=== PATIENT | male | born 1950 | race Caucasian/White ===

== ENCOUNTER 2023-03-22 00:51 | Day surgery (SDC) | payer OTHER, SELFPAY ==
[2023-03-07 14:50] VITALS: BMI 21.7
--- NOTE | 2023-03-22 09:36 | PCCCNOTE ---
CC was notified of pt. requesting to see a oncology social work due to what pt. described as a family situation. Met with pt. and pt's brother in law Robert. Asked pt. if he'd like to meet with CC in area but pt. reported he no longer needed a oncology social work and just wanted to get this colonoscopy done. Pt. aware that if he changed his mind, to request CC to come back later today.
[2023-03-22 09:48] VITALS: BP 134/89; PULSE 55; RESP 20; TEMP 36.6; O2SAT 99
[2023-03-22] MEDS: LACTATED RINGERS 1,000 ML 150 ML IV CONT (10:00)
--- NOTE | 2023-03-22 10:04 | P.PNAN_ITS ---
Anes - Initial Pre Proc Eval Procedure: Operation Date: 03/22/23 11:00 Proposed Procedures p Screening Colonoscopy - Catrachito Luna MD Date/Time: 03/22/23 10:04 Surgeon: Catrachito Luna MD Pre Op Diagnosis: neoplasm screening Patient Data Age: 73 Gender: M Height: 1.88 m Weight: 76.8 kg Last Vital Signs Temp 36.6 C 03/22/23 09:48 Pulse 55 L 03/22/23 09:48 Resp 20 03/22/23 09:48 BP 134/89 03/22/23 09:48 Pulse Ox 99 03/22/23 09:48 O2 Del Method Room Air 03/22/23 09:48 Allergies Allergy/AdvReac Type Severity Reaction Status Date / Time No Known Allergies Allergy Verified 03/22/23 09:47 Home Medications Medication Instructions Recorded Confirmed Type atorvastatin 10 mg tablet 10 mg PO DAILY 03/07/23 03/07/23 History lifitegrast 5 % eye drops in a 2 drp EACH EYE DAILY 03/07/23 03/07/23 History dropperette (Xiidra) [id number] 300 mcg-K 60 1 tablet PO DAILY 03/07/23 03/07/23 History mcg-lycop 600 mcg-lutein 300 mcg tablet (Centrum Silver Men) omega 6-aro-djx-fish oil 1,200 mg 1 cap PO DAILY 03/07/23 03/07/23 History (144 mg-216 mg) capsule (Fish Oil) vit C 250 mg-vit E 90 mg-zinc 40 1 tablet PO DAILY 03/07/23 03/07/23 History mg-copper 1 [id number]-knlfef-[id number] capsule (PreserVision AREDS-2) Patient hx anesthesia problems: none Family hx anesthesia problems: none Results Review: All pre-operative results and documents have been reviewed as part of the pre- operative evaluation. [facility] Social History Social History Smoking packs per day: 1 Smoking cigarettes per day: 20.0 Years smoked: 50 Smoking pack-years: 50.00 Smoking status: Current every day smoker Tobacco type: cigarettes Alcohol intake: never Substance use: never Substance use type: does not use Living arrangements: alone Spiritual care concerns: No Anes - Eval Final PreProcedure Day of Procedure 03/22/23 10:04 Patient weight: normal Heart: regular rate and rhythm Lungs: decreased breath sounds Airway: Mallampati scale class II Neurological: alert and oriented Last oral intake: >/= 8 hours ASA classification: III Emergent: no Anesthetic plan: proceed Anesthesia type and monitoring: general GIVS and standard monitoring Results Review: All pre-operative results and documents have been reviewed as part of the pre- operative evaluation. Informed Consent: The patient's anesthetic plan and its attendant risks and benefits were discussed with the patient/family/POA. Questions were solicited and answers provided to the satisfaction of the patient/family/POA.
--- NOTE | 2023-03-22 10:34 | PM.HPGS ---
History of Present Illness History of Present Illness Consent: Risks, benefits, and alternatives have been discussed and questions answered. Patient agrees to proceed with procedure. Chief complaint: neoplasm screening Narrative: Justyn Melton is a 73 year old male with polyps 8 years ago Review of Systems Constitutional: Constitutional: Denies headache(s) and Denies weakness Eyes: Eyes: Denies blurry vision ENT: Reports Normal hearing present, Denies headache(s) and Denies neck pain Cardiovascular: Cardiovascular: Denies chest pain and Denies dyspnea Respiratory: Respiratory: Denies dyspnea Gastrointestinal: Gastrointestinal: Reports no additional gastrointestinal complaints Genitourinary: Genitourinary: Denies dysuria Musculoskeletal: Musculoskeletal: Denies neck pain Integumentary/Breasts: Skin/Breast: Denies dry skin Neurologic: Reports Normal hearing present, Denies headache(s) and Denies weakness Psychiatric: Psychiatric: Denies anxiety Endocrine: Endocrine: Denies change in body appearance Hematologic/Lymphatic: Hematologic/Lymphatic: Denies easy bleeding Allergic/Immunologic: Allergic/Immunologic: Denies urticaria [facility] Past Medical History Medical History (Updated 03/22/23 @ 10:34 by Catrachito Luna MD) Adenomatous colon polyp Social History Social History Smoking packs per day: 1 Smoking cigarettes per day: 20.0 Years smoked: 50 Smoking pack-years: 50.00 Smoking status: Current every day smoker Tobacco type: cigarettes Alcohol intake: never Substance use: never Substance use type: does not use Living arrangements: alone Spiritual care concerns: No Meds Home Medications and Allergies Home Medications Medication Instructions Recorded Confirmed Type atorvastatin 10 mg tablet 10 mg PO DAILY 03/07/23 03/07/23 History lifitegrast 5 % eye drops in a 2 drp EACH EYE DAILY 03/07/23 03/07/23 History dropperette (Xiidra) [id number]-xp-gjalj 300 mcg-K 60 1 tablet PO DAILY 03/07/23 03/07/23 History mcg-lycop 600 mcg-lutein 300 mcg tablet (Centrum Silver Men) omega 5-vkz-ufn-fish oil 1,200 mg 1 cap PO DAILY 03/07/23 03/07/23 History (144 mg-216 mg) capsule (Fish Oil) vit C 250 mg-vit E 90 mg-zinc 40 1 tablet PO DAILY 03/07/23 03/07/23 History mg-copper 1 lo-dwxkud-pfkhgh capsule (PreserVision AREDS-2) Allergies Allergy/AdvReac Type Severity Reaction Status Date / Time No Known Allergies Allergy Verified 03/22/23 09:47 Vital Signs Vital Signs - 24 hr 03/22/23 09:48 Temperature 98 F Pulse Rate 55 L Respiratory Rate 20 Blood Pressure 134/89 Pulse Oximetry 99 Oxygen Delivery Room Air Exam Const: General: comfortable and no acute distress HENMT: Face/Nose/Sinus: Normal nares present Eyes: General: appearance normal, both eyes and all related structures Neck: Neck: no JVD Resp: Auscultation: clear to auscultation bilaterally Cardio: Rate: regular rate Rhythm: regular rhythm GI: Inspection: non-distended GI Palp: Yes Soft to palpation Skin: General skin exam: normal color Neuro: General: gait normal Speech: normal speech Extrem: General: normal to inspection Psych: Mental Status: mental status grossly normal Assessment and Plan Assessment and plan (1) Adenomatous colon polyp: Code(s): D12.6 - Benign neoplasm of colon, unspecified Status: Acute Assessment and Plan: colonoscopy
[2023-03-22 10:47] VITALS: BP 116/77; PULSE 52; RESP 13; O2SAT 97
[2023-03-22 10:57] VITALS: BP 114/72; PULSE 58; RESP 16; O2SAT 100
[2023-03-22 11:07] VITALS: BP 139/95; PULSE 53; RESP 12; O2SAT 99
== END 2023-03-22 11:17 | disposition home or self-care (01) ==
PROVIDERS: PCP Nurse Practitioner Family; Visit Provider Internal Medicine Gastroenterology
PROC: 0DJD8ZZ Inspection of Lower Intestinal Tract, Via Natural or Artificial Opening Endoscopic (ICD-10-PCS; CPT 45378; principal; 2023-03-22 11:00)
DX: Z12.11 Encounter for screening for malignant neoplasm of colon (principal); D12.3 Benign neoplasm of transverse colon; K57.30 Diverticulosis of large intestine without perforation or abscess without bleeding; K64.8 Other hemorrhoids; F17.210 Nicotine dependence, cigarettes, uncomplicated
CPT/HCPCS: 45380; 45385; 88305; J2704; J7120